=== PATIENT | male | born 1995 | race Caucasian/White ===

== ENCOUNTER 2017-05-07 15:50 | Emergency (ER) | payer OTHER ==
[2017-05-07 16:47] LABS: RED BLOOD COUNT 4.98 M/UL (4.20-5.50); WHITE BLOOD COUNT 6.7 K/UL (4.5-11.0)
[2017-05-07 16:58] LABS: BUN/CREATININE RATIO 15 (0-10)
== END 2017-05-07 17:40 | disposition home or self-care (01) ==
LOC: ER1 15:50
PROVIDERS: Nurse Practitioner Family
DX: T67.5XXA Heat exhaustion, unspecified, initial encounter (principal); X30.XXXA Exposure to excessive natural heat, initial encounter; Y92.007 Garden or yard of unspecified non-institutional (private) residence as the place of occurrence of the external cause
CPT/HCPCS: 36415; 80048; 85025; 99284

== ENCOUNTER 2021-02-11 07:14 | Emergency (ER) | payer OTHER ==
[~2021-02-11] VITALS: Ht 190.5 cm; Wt 119.3 kg
[~2021-02-11 07:14] MED LIST: BACTROBAN OINT22 GM EXT; DELSYM30 MG/5 ML PO; EXPECTORANT200 MG PO; FLONASE 0.05% N16 GM; IBUPROFEN600 MG PO; NAPROSYN500 MG PO; PREDNISONE 20 M20 MG PO; PREDNISONE 50 M50 MG PO; PROAIR HFA8.5 GM INH; SILVADENE20 GM TP
[2021-02-11 08:06] LABS: HEMOGLOBIN 15.5 gm/dl (14.0-17.5); RED BLOOD COUNT 4.73 M/UL (4.20-5.50); WHITE BLOOD COUNT 7.6 K/UL (4.5-11.0)
[2021-02-11 08:56] LABS: BUN/CREATININE RATIO 17 (0-10)
[2021-02-11] MEDS ORDERED: ETODOLAC400 MG PO (10:34)
[2021-02-11] MEDS ORDERED: ZOFRAN ODT 4 MG4 MG SL (10:34)
[2021-02-11] MEDS ORDERED: TRAMADOL HCL100 MG PO (10:35)
== END 2021-02-11 11:03 | disposition home or self-care (01) ==
LOC: ER1 07:14
PROVIDERS: Emergency Medicine
DX: R10.9 Unspecified abdominal pain (principal); M54.5 Low back pain; J45.909 Unspecified asthma, uncomplicated
CPT/HCPCS: 80053; 81001; 83690; 85025; 85652; 86140; 96374; 96375; 99284; J1885; J2405

== ENCOUNTER 2021-07-15 10:58 | Emergency (ER) | payer OTHER ==
[~2021-07-15 10:58] MED LIST changes: +ETODOLAC400 MG PO; +TRAMADOL HCL100 MG PO; +ZOFRAN ODT 4 MG4 MG SL
[2021-07-15] MEDS ORDERED: AUGMENTIN 875-1 EACH PO (14:23)
[2021-07-15] MEDS ORDERED: IBUPROFEN800 MG PO (14:23)
== END 2021-07-15 14:30 | disposition home or self-care (01) ==
LOC: ER1 10:58
DX: J02.9 Acute pharyngitis, unspecified (principal); F17.290 Nicotine dependence, other tobacco product, uncomplicated; Z90.89 Acquired absence of other organs; Z20.822 Contact with and (suspected) exposure to COVID-19
CPT/HCPCS: 87081; 87880; 99283; U0002